=== PATIENT | female | born 1965 | race Caucasian/White ===

== ENCOUNTER 2019-06-11 15:17 | Inpatient (IN) ==
[2019-06-11] MEDS ORDERED: LORazepam 1 MG/2 ML VIAL IV STA (15:36)
[2019-06-11] MEDS ORDERED: LORazepam 2 MG/ML VIAL (IM USE) ONE (15:37)
[2019-06-11 15:43] LABS: Basophils # (auto) 0.01 K/uL (0-0.2); Basophils % (auto) 0.1 %; Hematocrit (blood only) 30.9 % (37-47); Immature Granulocytes # (auto) 0.03 K/uL (0.00-0.02); Immature Granulocytes % (auto) 0.2 %; Lymphocytes # (auto) 0.74 K/uL (1.2-3.4); Lymphocytes % (auto) 5.6 %; Mean Corpuscular Hemoglobin 20.4 pg (25-34); Mean Corpuscular Hgb Conc 29.1 g/dL (32-36); Mean Corpuscular Volume 69.9 fL (80-100); Mean Platelet Volume 9.8 fL (7.4-10.4); Monocytes # (auto) 0.35 K/uL (0.11-0.59); Monocytes % (auto) 2.6 %; Neutrophils % (auto) 91.5 %; Platelet Count 441 K/uL (130-400); RDW Coefficient of Variation 18.4 % (11.5-14.5); RDW Standard Deviation 46.3 fL (36.4-46.3); Red Blood Count 4.42 M/uL (4.2-5.4); White Blood Count 13.33 K/uL (4.8-10.8)
[2019-06-11] MEDS ORDERED: SODIUM CHLORIDE 0.9% 1000ML 1,000 ML IV SCH (15:45)
[2019-06-11 16:01] LABS: Alanine Aminotransferase 31 U/L (12-78); Albumin Level 4.1 gm/dl (3.4-5.0); Aspartate Aminotransferase 21 U/L (15-37); BUN Creatinine Ratio 13.5 (10-20); Blood Urea Nitrogen 16 mg/dl (7-18); Carbon Dioxide 19 mmol/L (21-32); Chloride 107 mmol/L (98-107); Est GFR (African American) 62.7; Est GFR (Non-African American) 54.1; Glucose 161 mg/dl (70-99); Magnesium 1.5 mg/dl (1.8-2.4); Potassium 3.2 mmol/L (3.5-5.1); Sodium 137 mmol/L (136-145)
[2019-06-11] MEDS ORDERED: MAGNESIUM SULFATE / D5W 1 GM/100 ML BAG IV ONE (16:05)
[2019-06-11 16:18] LABS: Alkaline Phosphatase 85 U/L (45-117); Bilirubin,Total 0.5 mg/dl (0.2-1); Globulin 4.3 gm/dl (2.5-4.0); Phosphorus 0.9 mg/dl (2.5-4.9); Total Protein 8.4 gm/dl (6.4-8.2)
[2019-06-11] MEDS ORDERED: POTASSIUM PHOS 3 MMOL/1 ML INFUSION IV STA ×2 (16:20→20:47)
[2019-06-11 16:21] LABS: Hypochromasia Present; Microcytosis Present
[2019-06-11] MEDS ORDERED: POTASSIUM PHOSPHATE 21 MMOL in SODIUM CHLORIDE 0.9% 500 ML IV ONE ×2 (16:45→22:30)
[2019-06-11 17:20] LABS: Influenza A virus by PCR Neg for Influ A (Neg); Influenza B virus by PCR Neg for Influ B (Neg)
[2019-06-11 17:21] LABS: Appearance Urine Clear (Clear); Bilirubin Urine Negative (Negative); Blood Urine Negative (Negative); Color Urine Yellow; Glucose Urine UA Negative (Negative); Ketones Urine Negative (Negative); Leukocyte Esterase Urine Negative (Negative); Nitrite Urine Negative (Negative); Protein Urine Negative (Negative); Specific Gravity Urine 1.015 (1.000-1.030); Urobilinogen Urine Negative (Negative); pH Urine 8.5 (4.5-7.5)
--- NOTE | 2019-06-11 17:53 | History & Physical Report ---
Date of Service June 11, 2019 Assessment & Plan (1) Nausea vomiting and diarrhea: The nausea, vomiting and diarrhea is led to electrolyte disturbances and dehydration, which is caused the rest of her symptoms. I have asked the emergency department to send off stool studies, including rota virus, due to exposure to her daughter who works in a daycare center. Present on Admission?: Yes (2) Hypomagnesemia: Give a total of mag sulfate 3 g IV, and recheck in the a.m. Present on Admission?: Yes (3) Hypokalemia: Place on normal saline plus KCl 20 mEq 150 mils per hour Present on Admission?: Yes (4) Dehydration: Replacing electrolytes and fluids as noted Present on Admission?: Yes (5) Prolonged QT interval: Likely secondary to electrolyte disturbances. Repeat EKG in a.m. once electrolytes have been replaced Present on Admission?: Yes (6) Hypophosphatemia: Replacing with K-Phos IV. Repeat laboratories in a.m. Present on Admission?: Yes (7) Muscle spasm: Secondary to electrolyte disturbances and dehydration. Patient reportedly had muscle contractures secondary to severe spasms when she came into the ED, which gave her concerns regarding a possible stroke. The symptoms improved relatively quickly with rehydration and initial electrolyte replacement Present on Admission?: Yes (8) Anxiety and depression: Continue alprazolam and citalopram Present on Admission?: Yes (9) GERD (gastroesophageal reflux disease): Change omeprazole to pantoprazole Present on Admission?: Yes (10) HTN (hypertension): Hold HCTZ due to ehydration and electrolyte disturbances Present on Admission?: Yes (11) Hyperlipidemia: Continue simvastatin 20 mg at bedtime Present on Admission?: Yes History of Present Illness Chief Complaint: The patient presents to the emergency department with 24 hours of persistent nausea, vomiting and diarrhea, with subsequent arm and leg cramps and tingling that concerned her that she might be having a stroke Primary Care Provider: Laxmi De La Torre DO The patient is a 53-year-old female with a past medical history of hypert ension, GERD, hypercholesterolemia, anxiety and depression who presents to the emergency department 24 hours of persistent nausea, vomiting and diarrhea and arm and leg cramping. She did also have some lightheadedness and dizziness along with fatigue. She has not had any recent travels. Her main potential sick exposure is that of her daughter who works at a daycare center. She does not think she has had any potentially contaminated food intake. Allergies Allergy/AdvReac Type Severity Reaction Status Date / Time Sulfa (Sulfonamide Allergy Rash Unverified 06/11/19 16:52 Antibiotics) Home Medications Home Medications Medication Instructions Recorded Confirmed Type alprazolam 0.25 mg PO UD PRN 06/11/19 06/11/19 History aspirin 81 mg PO QAM 06/11/19 06/11/19 History citalopram 40 mg PO QPM 06/11/19 06/11/19 History hydrochlorothiazide 50 mg PO QAM 06/11/19 06/11/19 History multivitamin 1 tab PO QPM 06/11/19 06/11/19 History omeprazole 20 mg PO QAM 06/11/19 06/11/19 History simvastatin 20 mg PO HS 06/11/19 06/11/19 History Past Med/Surg History Medical History HTN (hypertension) Surgical History H/O right wrist surgery Family History Other No significant family history Social History Preferred Language: Ghanaian Communication Ability: Effective 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 Beliefs That Will Affect Care: None marital status: Current Living Situation: Spouse current occupational status: employed Feels Safe at Home: Yes Safety Concerns: Feels Safe At This Time Smoking Status: Never smoker Hx Alcohol Use: Yes Alcohol type: beer Hx Substance Use: No Review of Systems Review of Systems: The patient denies chest pain, palpitations, cough, lower extremity swelling, sore throat, fevers, chills, sweats, blood in urine or stool, dysuria, urinary frequency or urgency, headache, memory loss, loss of consciousness, rash, abnormal bruising or bleeding, imbalance, focal or generalized weakness, generalized arthralgias or myalgias, back or neck pain, or night sweats. The review of systems is otherwise negative other than for that already noted above, and at least 10 systems have been reviewed. Physical Exam Physical Exam: The patient is awake, alert and oriented 3, well developed and well nourished, normocephalic and atraumatic, sitting upright in bed and in no acute distress. HEENT--PERRL, EOMI, mucous membranes and oropharynx dry. Neck--supple. No JVD. No bruits. Thyroid normal, trachea midline, no a denopathy. Heart--normal S1 and S2. No murmurs, rubs or gallops. Lungs--clear bilaterally, no respiratory distress, no accessory muscle use. Abdomen--normal bowel sounds and soft. Nontender. Nondistended, no hernias or masses, no organomegaly. Extremities--no cyanosis or clubbing. No edema. There are good distal pulses b/l. Dermatologic--normal skin turgor, normal color, no abnormal lymph nodes, no rash. Neurologic--cranial nerves II through XII grossly intact. Rheumatologic--normal range of motion. Psychiatric--normal affect. Results & Data Vital Signs (Past 12 Hours) Vital Signs Temp Pulse Resp BP Pulse Ox 06/11/19 15:37 78 48 H 97 06/11/19 15:17 98.2 F 78 40 H 146/64 H 100 Laboratory Results Laboratory Results WBC 13.33 K/uL (4.8-10.8) H 06/11/19 15:36 RBC 4.42 M/uL (4.2-5.4) 06/11/19 15:36 Hgb 9.0 g/dL (12.0-16.0) L 06/11/19 15:36 Hct 30.9 % (37-47) L 06/11/19 15:36 MCV 69.9 fL (80-100) L 06/11/19 15:36 MCH 20.4 pg (25-34) L 06/11/19 15:36 MCHC 29.1 g/dL (32-36) L 06/11/19 15:36 RDW Std Deviation 46.3 fL (36.4-46.3) 06/11/19 15:36 RDW Coeff of Freddie 18.4 % (11.5-14.5) H 06/11/19 15:36 Plt Count 441 K/uL (130-400) H 06/11/19 15:36 MPV 9.8 fL (7.4-10.4) 06/11/19 15:36 Immature Gran % (Auto) 0.2 % 06/11/19 15:36 Neut % (Auto) 91.5 % 06/11/19 15:36 Lymph % (Auto) 5.6 % 06/11/19 15:36 [place] % (Auto) 2.6 % 06/11/19 15:36 Eos % (Auto) 0.0 % 06/11/19 15:36 Baso % (Auto) 0.1 % 06/11/19 15:36 Immature Gran # (Auto) 0.03 K/uL (0.00-0.02) H 06/11/19 15:36 Neut # (Auto) 12.20 K/uL (1.4-6.5) H 06/11/19 15:36 Lymph # (Auto) 0.74 K/uL (1.2-3.4) L 06/11/19 15:36 [place] # (Auto) 0.35 K/uL (0.11-0.59) 06/11/19 15:36 Eos # (Auto) 0.00 K/uL (0-0.5) 06/11/19 15:36 Baso # (Auto) 0.01 K/uL (0-0.2) 06/11/19 15:36 Hypochromasia Present 06/11/19 15:36 Microcytosis Present 06/11/19 15:36 Sodium 137 mmol/L (136-145) 06/11/19 15:36 Potassium 3.2 mmol/L (3.5-5.1) L 06/11/19 15:36 Chloride 107 mmol/L (98-107) 06/11/19 15:36 Carbon Dioxide 19 mmol/L (21-32) L 06/11/19 15:36 Anion Gap 11.0 (3-11) 06/11/19 15:36 BUN 16 mg/dl (7-18) 06/11/19 15:36 Creatinine 1.16 mg/dl (0.6-1.2) 06/11/19 15:36 Est Cr Clr Drug Dosing Not Reportable 06/11/19 15:36 Est GFR ( Amer) 62.7 06/11/19 15:36 Est GFR (Non-Af Amer) 54.1 06/11/19 15:36 BUN/Creatinine Ratio 13.5 (10-20) 06/11/19 15:36 Glucose 161 mg/dl (70-99) H 06/11/19 15:36 POC Glucose 164 (70-99) H 06/11/19 15:47 Calcium 9.0 mg/dl (8.5-10.1) 06/11/19 15:36 Phosphorus 3.9 mg/dl (2.5-4.9) D 06/11/19 21:06 Magnesium 2.2 mg/dl (1.8-2.4) 06/11/19 21:48 Total Bilirubin 0.5 mg/dl (0.2-1) 06/11/19 15:36 AST 21 U/L (15-37) 06/11/19 15:36 ALT 31 U/L (12-78) 06/11/19 15:36 Alkaline Phosphatase 85 U/L (45-117) 06/11/19 15:36 Total Protein 8.4 gm/dl (6.4-8.2) H 06/11/19 15:36 Albumin 4.1 gm/dl (3.4-5.0) 06/11/19 15:36 Globulin 4.3 gm/dl (2.5-4.0) H 06/11/19 15:36 Albumin/Globulin Ratio 1.0 (0.9-2) 06/11/19 15:36 TSH 4.770 uIu/ml (0.300-4.500) H 06/11/19 15:36 Free T4 1.30 ng/dl (0.8-1.6) 06/11/19 15:36 Urine Color Yellow 06/11/19 17:13 Urine Appearance Clear (Clear) 06/11/19 17:13 Urine pH 8.5 (4.5-7.5) H 06/11/19 17:13 Ur Specific [place] 1.015 (1.000-1.030) 06/11/19 17:13 Urine Protein Negative (Negative) 06/11/19 17:13 Urine Glucose (UA) Negative (Negative) 06/11/19 17:13 Urine Ketones Negative (Negative) 06/11/19 17:13 Urine Blood Negative (Negative) 06/11/19 17:13 Urine Nitrite Negative (Negative) 06/11/19 17:13 Urine Bilirubin Negative (Negative) 06/11/19 17:13 Urine Urobilinogen Negative (Negative) 06/11/19 17:13 Ur Leukocyte Esterase Negative (Negative) 06/11/19 17:13 Influenza Type A (PCR) Neg for Influ A (Neg) 06/11/19 16:00 Influenza Type B (PCR) Neg for Influ B (Neg) 06/11/19 16:00 Code Status & VTE Plan Code Status Full code VTE Prophylaxis Plan VTE Prophylaxis will be ordered: Yes PG Care Time/CCT Total # of Minutes Spent Total Time Spent with Patient: Total time spent is greater than 50% in coordination of care (as documented) at patient's floor/unit and/or counseling patient:
--- NOTE | 2019-06-11 18:02 | Emergency Department Note ---
Entered by Guerita Arroyo acting as a scribe for History of Present Illness General Chief complaint: TIA Symptoms Stated complaint: NUMB FINGERS/FEET Time Seen by Provider: 06/11/19 15:24 Source: patient History of Present Illness Onset (ago): hour(s) 2 Location: head Pain Consistency: + other (episode) Maximum Pain Intensity: 10 Quality: + other (TIA symptoms) Associated symptoms: + denies other symptoms (change in diet, recent falls), + fever/chills (fever), + nausea/vomiting and + other (cramps, breathing heavy, abdominal pain, tingling in face, foot pain, inability to sit still, body aches, diarrhea) The patient is a 53 year old female w/ PMHx HTN and right wrist surgery who presents to the ED w/ CC of an episode of TIA symptoms starting 2 hours ago. The patient states that this morning she started vomiting and it was black. She states that by 2 hours ago she had a fever of 102 and her hands started to cramp. She reports that she took Ibuprofen at this time. She notes that at that time she wasnt breathing heavy, but her was able to talk her into coming into the ED because he was concerned she was having a stroke. The patient states that on the way here she started having tingling in her face, foot pain, worsening cramps in her hands, and being unable to sit still. The patient complains of abdominal pain from vomiting, body aches, and diarrhea. The patient notes that she did get the flu shot. The patient denies change in diet, change in medications, anyone else being sick, recent travel, recent antibiotic use, recent falls, and a history of diabetes. Home Medications Home Medications Medication Instructions Recorded Confirmed Type alprazolam 0.25 mg PO UD PRN 06/11/19 06/11/19 History aspirin 81 mg PO QAM 06/11/19 06/11/19 History citalopram 40 mg PO QPM 06/11/19 06/11/19 History hydrochlorothiazide 50 mg PO QAM 06/11/19 06/11/19 History multivitamin 1 tab PO QPM 06/11/19 06/11/19 History omeprazole 20 mg PO QAM 06/11/19 06/11/19 History simvastatin 20 mg PO HS 06/11/19 06/11/19 History Allergies Allergy/AdvReac Type Severity Reaction Status Date / Time Sulfa (Sulfonamide Allergy Rash Unverified 06/11/19 16:52 Antibiotics) Past Med/Surg History Medical History HTN (hypertension) Surgical History H/O right wrist surgery Family History Other No significant family history Social History Preferred Language: Malian marital status: Current Living Situation: Spouse current occupational status: employed Feels Safe at Home: Yes Smoking Status: Former smoker Review of Systems See HPI for pertinent positives & negatives. and A total of 10 systems reviewed and were otherwise negative Physical Exam Vital Signs Vital Signs - 24 hr 06/11/19 15:17 06/11/19 15:37 Temperature 36.8 C Temperature Source Oral Pulse Rate 78 78 Pulse Rhythm Regular Pulse Strength Normal Respiratory Rate 40 H 48 H Respiratory Effort / Characteristics Non-Labored Respiratory Depth Normal Respiratory Pattern Regular Blood Pressure 146/64 H Blood Pressure Mean 91 Blood Pressure Position Sitting Pulse Oximetry 100 97 Oxygen Delivery Method Room Air Room Air Sepsis Recent Fever Within 48 Hours No Sepsis Action Taken by Nursing No Action Required GENERAL: Well nourished, moderate distress. Anxious. EYE EXAM: Normal conjunctiva. PERRL, no anisocoria and EOM's grossly intact w/o pain. OROPHARYNX: Moist mucous membranes. Grossly normal dentition. NECK: Supple, no nuchal rigidity, no adenopathy, non-tender. No signs of meningismus. LUNGS: Clear to auscultation. Normal chest wall mechanics. HEART: NSR, no MRG. ABDOMEN: Abdomen soft, non-tender, normo-active bowel sounds, no masses, no rebound or guarding. BACK: No CVA TTP. SKIN: No rashes and no bruising. UPPER EXTREMITIES: Upper extremities are grossly normal. LOWER EXTREMITIES: No pitting edema. No calf pain. NEURO EXAM: A&O x3, cranial nerves II-XII grossly intact, normal speech, moves all 4 extremities on command w/o issue with the exception of the left upper extremity secondary to contracture. Course Course 1531:The patient was evaluated in room B3B. A complete history and physical exam was performed. 1534: Orders were placed and the patient was started on a monitoring tech. 1640: I reevaluated the patient and updated her on her test results. I discussed the treatment plan with her. She verbally agrees and understands. 1652: I discussed the patient's case with Dr. Barney- [facility] Hospitalist. She will evaluate the patient for further management. Administered Medications Potassium Phosphate 21 mmol/ (Sodium Chloride) 507 mls @ 88 mls/hr IV ONE ONE Stop: 06/11/19 22:30 Last Admin: 06/11/19 16:45 Dose: 88 mls/hr Documented by: [id number] Discontinued Medications Sodium Chloride (Nss 1000ml) 1,000 mls @ 999 mls/hr IV .Q1H1M NAHOMY Stop: 06/11/19 16:45 Last Admin: 06/11/19 15:42 Dose: 999 mls/hr Documented by: [id number] Lorazepam (Ativan) 1 mg in 2 mls @ 2 mls/min IV NOW STA Stop: 06/11/19 15:37 Last Admin: 06/11/19 15:41 Dose: Not Given Documented by: [id number] Magnesium Sulfate/Dextrose (Magnesium Sulfate / D5w) 1 gm in 100 mls @ 100 mls/hr IV ONE ONE Stop: 06/11/19 17:04 Last Admin: 06/11/19 16:47 Dose: 100 mls/hr Documented by: [id number] Lorazepam (Ativan) Confirm Administered Dose 2 mg .ROUTE .STK-MED ONE Stop: 06/11/19 15:38 Last Admin: 06/11/19 15:41 Dose: 1 mg Documented by: [id number] Critical Care Time Critical Care Time: Yes Total Critical Care Time: 35 I have personally spent 35 minutes of critical care time in direct management of this patient. This includes bedside care, interpretation of diagnostic studies, and testing, discussion with consultants, patient, and family members, and other require inpatient management activities. This 35 minutes is in excess of all separately billable procedures. Medical Decision Making Differential Diagnosis Differential diagnoses include dehydration, electrolyte imbalance, hyperg lycemia, stroke, anxiety, viral syndrome. Medical Records Attestation: I reviewed the patient's medical records. Home Medications Current Medication List: was personally reviewed by me Laboratory Data Attestation: I reviewed the patient's lab results. Result diagrams: 06/11/19 15:36 06/11/19 15:36 Lab Results 06/11/19 06/11/19 06/11/19 Range/Units 15:36 15:36 15:47 WBC 13.33 H (4.8-10.8) K/uL RBC 4.42 (4.2-5.4) M/uL Hgb 9.0 L (12.0-16.0) g/dL Hct 30.9 L (37-47) % MCV 69.9 L (80-100) fL MCH 20.4 L (25-34) pg MCHC 29.1 L (32-36) g/dL RDW Std Deviation 46.3 (36.4-46.3) fL RDW Coeff of Freddie 18.4 H (11.5-14.5) % Plt Count 441 H (130-400) K/uL MPV 9.8 (7.4-10.4) fL Immature Gran % (Auto) 0.2 % Neut % (Auto) 91.5 % Lymph % (Auto) 5.6 % Rich % (Auto) 2.6 % Eos % (Auto) 0.0 % Baso % (Auto) 0.1 % Immature Gran # (Auto) 0.03 H (0.00-0.02) K/uL Neut # (Auto) 12.20 H (1.4-6.5) K/uL Lymph # (Auto) 0.74 L (1.2-3.4) K/uL Rich # (Auto) 0.35 (0.11-0.59) K/uL Eos # (Auto) 0.00 (0-0.5) K/uL Baso # (Auto) 0.01 (0-0.2) K/uL Hypochromasia Present Microcytosis Present Sodium 137 (136-145) mmol/L Potassium 3.2 L (3.5-5.1) mmol/L Chloride 107 (98-107) mmol/L Carbon Dioxide 19 L (21-32) mmol/L Anion Gap 11.0 (3-11) BUN 16 (7-18) mg/dl Creatinine 1.16 (0.6-1.2) mg/dl Est Cr Clr Drug Dosing Not Reportable Est GFR ( Amer) 62.7 Est GFR (Non-Af Amer) 54.1 BUN/Creatinine Ratio 13.5 (10-20) Glucose 161 H (70-99) mg/dl POC Glucose 164 H (70-99) Calcium 9.0 (8.5-10.1) mg/dl Phosphorus 0.9 L* (2.5-4.9) mg/dl Magnesium 1.5 L (1.8-2.4) mg/dl Total Bilirubin 0.5 (0.2-1) mg/dl AST 21 (15-37) U/L ALT 31 (12-78) U/L Alkaline Phosphatase 85 (45-117) U/L Total Protein 8.4 H (6.4-8.2) gm/dl Albumin 4.1 (3.4-5.0) gm/dl Globulin 4.3 H (2.5-4.0) gm/dl Albumin/Globulin Ratio 1.0 (0.9-2) TSH 4.770 H (0.300-4.500) uIu/ml Free T4 1.30 (0.8-1.6) ng/dl Urine Color Urine Appearance (Clear) Urine pH (4.5-7.5) Ur Specific [place] (1.000-1.030) Urine Protein (Negative) Urine Glucose (UA) (Negative) Urine Ketones (Negative) Urine Blood (Negative) Urine Nitrite (Negative) Urine Bilirubin (Negative) Urine Urobilinogen (Negative) Ur Leukocyte Esterase (Negative) Influenza Type A (PCR) (Neg) Influenza Type B (PCR) (Neg) 06/11/19 06/11/19 Range/Units 16:00 17:13 WBC (4.8-10.8) K/uL RBC (4.2-5.4) M/uL Hgb (12.0-16.0) g/dL Hct (37-47) % MCV (80-100) fL MCH (25-34) pg MCHC (32-36) g/dL RDW Std Deviation (36.4-46.3) fL RDW Coeff of [place] (11.5-14.5) % Plt Count (130-400) K/uL MPV (7.4-10.4) fL Immature Gran % (Auto) % Neut % (Auto) % Lymph % (Auto) % [place] % (Auto) % Eos % (Auto) % Baso % (Auto) % Immature Gran # (Auto) (0.00-0.02) K/uL Neut # (Auto) (1.4-6.5) K/uL Lymph # (Auto) (1.2-3.4) K/uL [place] # (Auto) (0.11-0.59) K/uL Eos # (Auto) (0-0.5) K/uL Baso # (Auto) (0-0.2) K/uL Hypochromasia Microcytosis Sodium (136-145) mmol/L Potassium (3.5-5.1) mmol/L Chloride (98-107) mmol/L Carbon Dioxide (21-32) mmol/L Anion Gap (3-11) BUN (7-18) mg/dl Creatinine (0.6-1.2) mg/dl Est Cr Clr Drug Dosing Est GFR ( Amer) Est GFR (Non-Af Amer) BUN/Creatinine Ratio (10-20) Glucose (70-99) mg/dl POC Glucose (70-99) Calcium (8.5-10.1) mg/dl Phosphorus (2.5-4.9) mg/dl Magnesium (1.8-2.4) mg/dl Total Bilirubin (0.2-1) mg/dl AST (15-37) U/L ALT (12-78) U/L Alkaline Phosphatase (45-117) U/L Total Protein (6.4-8.2) gm/dl Albumin (3.4-5.0) gm/dl Globulin (2.5-4.0) gm/dl Albumin/Globulin Ratio (0.9-2) TSH (0.300-4.500) uIu/ml Free T4 (0.8-1.6) ng/dl Urine Color Yellow Urine Appearance Clear (Clear) Urine pH 8.5 H (4.5-7.5) Ur Specific [place] 1.015 (1.000-1.030) Urine Protein Negative (Negative) Urine Glucose (UA) Negative (Negative) Urine Ketones Negative (Negative) Urine Blood Negative (Negative) Urine Nitrite Negative (Negative) Urine Bilirubin Negative (Negative) Urine Urobilinogen Negative (Negative) Ur Leukocyte Esterase Negative (Negative) Influenza Type A (PCR) Neg for Influ A (Neg) Influenza Type B (PCR) Neg for Influ B (Neg) ECG Data Attestation: I personally reviewed and interpreted this ECG as follows: Indication: + vomiting Rate (beats per minute): 71 Rhythm: + normal sinus ECG Intervals/blocks: + Normal QRS, + Prolonged QT and + Normal SC ECG ST segments: + ST depression (anterior and lateral) Blood Pressure Blood Pressure Findings: Elevated blood pressure Blood Pressure Disposition: further management by hospitalist MDM Narrative The patient is a 53 year old female w/ PMHx HTN and right wrist surgery who presents to the ED w/ CC of an episode of TIA symptoms starting 2 hours ago. Patient was seen and evaluated the bedside. The patient does present with difficulty with movement. The patient also does complain of some paresthesias throughout. The patient is hyperventilating at the bedside and on exam the patient does appear to have some contracture which may be related to spasm. The patient has related that she has been having some diarrheal type symptoms and has not been able to keep up with her fluids. The patient did have blood work completed on I did not order a CT of the head initially as I was more concerned of the possibility of metabolic abnormality. No prior history of hyperglycemia. I did discuss that we would order CT of the head if this was not explained by metabolic issues. The patient has a mild white count of 13 which I believe is reactive. Patient does have anemia. The patient's blood work does show a decreased bicarb may be consistent as a surrogate of dehydration and lactic acidosis. The patient does have critically low phosphorus as well as low magnesium and potassium. Potassium phosphate was ordered as well as magnesium for repletion. TSH is elevated but free T4 is normal. Urinalysis is negative as well as the flu. Given the fact the patient has prolonged QT and given the prolonged time course of repletion and continued management I believe she would benefit from inpatient treatment. I did speak with on-call hospitalist agreed to further evaluate treat the patient. Patient was subsequently admitted to the medicine service. Impression & Plan Hypophosphatemia, Muscle spasm, Prolonged QT interval, Hypokalemia, Hypomagnesemia, Dehydration Discharge Plan Visit Data Chief Complaint: TIA Symptoms Stated Complaint: NUMB FINGERS/FEET ED Provider: Arsenio Pena Discharge Problem: Hypophosphatemia, Muscle spasm, Prolonged QT interval, Hypokalemia, Hypomagnesemia, Dehydration Patient Disposition: Being Evaluated by Hospitalist Forms Stand Alone Forms: My [facility] Prescriptions Prescriptions: No Action multivitamin Tablet 1 tab PO QPM RF: 0 citalopram 40 mg tablet 40 mg PO QPM RF: 0 hydrochlorothiazide 50 mg tablet 50 mg PO QAM RF: 0 aspirin 81 mg Tablet,Delayed Release (Dr/Ec) 81 mg PO QAM RF: 0 alprazolam 0.25 mg tablet 0.25 mg PO UD PRN (Reason: Anxiety) RF: 0 simvastatin 20 mg tablet 20 mg PO HS RF: 0 omeprazole 20 mg capsule,delayed release(DR/EC) 20 mg PO QAM RF: 0 Referrals Referrals: Laxmi De La Torre DO [Primary Care Provider] - The scribe's documentation has been prepared under my direction and personally reviewed by me in its entirety. I confirm that the note above accurately reflects all work, treatment, procedures, and medical decision making performed by me.
[2019-06-11] MEDS ORDERED: ONDANSETRON INJ 2 MG/ML 2 ML VIAL IV PRN (20:47)
[2019-06-11] MEDS ORDERED: ACETAMINOPHEN 325 MG TAB PO PRN (20:47)
[2019-06-11 21:31] LABS: Phosphorus 3.9 mg/dl (2.5-4.9)
[2019-06-11] MEDS: CITALOPRAM 40 MG TAB PO SCH (21:33)
[2019-06-11] MEDS: NSS + 20MEQ KCL 20 MEQ/1,000 ML BAG IV SCH (21:34)
[2019-06-11] MEDS: MULTIVITAMIN TAB PO SCH (21:34)
[2019-06-11] MEDS: SIMVASTATIN 20 MG TAB PO SCH (21:34)
[2019-06-11] MEDS: MAGNESIUM SULFATE / D5W 1 GM/100 ML BAG IV SCH ×2 (21:35→22:36)
[2019-06-12] MEDS: NSS + 20MEQ KCL 20 MEQ/1,000 ML BAG IV SCH ×4 (03:35→23:39)
[2019-06-12 05:57] LABS: Basophils # (auto) 0.01 K/uL (0-0.2); Basophils % (auto) 0.2 %; Eosinophils # (auto) 0.03 K/uL (0-0.5); Eosinophils % (auto) 0.5 %; Hematocrit (blood only) 24.3 % (37-47); Hemoglobin 7.1 g/dL (12.0-16.0); Lymphocytes # (auto) 0.84 K/uL (1.2-3.4); Mean Corpuscular Hemoglobin 20.6 pg (25-34); Mean Corpuscular Hgb Conc 29.2 g/dL (32-36); Mean Corpuscular Volume 70.6 fL (80-100); Mean Platelet Volume 9.5 fL (7.4-10.4); Monocytes # (auto) 0.51 K/uL (0.11-0.59); Monocytes % (auto) 8.5 %; Neutrophils % (auto) 76.8 %; Platelet Count 308 K/uL (130-400); RDW Standard Deviation 49.2 fL (36.4-46.3); Red Blood Count 3.44 M/uL (4.2-5.4); White Blood Count 5.99 K/uL (4.8-10.8)
--- NOTE | 2019-06-12 06:05 | Electrocardiogram Report ---
Test Reason : Blood Pressure : / mmHG Vent. Rate : 071 BPM Atrial Rate : 071 BPM P-R Int : 126 ms QRS Dur : 086 ms QT Int : 490 ms P-R-T Axes : 034 014 -01 degrees QTc Int : 532 ms Poor data quality, interpretation may be adversely affected Normal sinus rhythm Nonspecific ST abnormality Prolonged QT Abnormal ECG No previous ECGs available Confirmed by Mahin Ramos ([id number]) on 06/12/2019 6:05:34 AM Referred By: Confirmed By:Mahin Ramos
[2019-06-12 06:23] LABS: Hypochromasia Present; Microcytosis Present
[2019-06-12 06:43] LABS: Albumin Globulin Ratio 0.9 (0.9-2); Albumin Level 2.9 gm/dl (3.4-5.0); BUN Creatinine Ratio 11.8 (10-20); Bilirubin,Total 0.3 mg/dl (0.2-1); Calcium 7.7 mg/dl (8.5-10.1); Creatinine Clr Calc Pharmacy 105.6 ml/min; Est GFR (African American) 122.1; Est GFR (Non-African American) 105.4; Globulin 3.3 gm/dl (2.5-4.0); Phosphorus 2.9 mg/dl (2.5-4.9); Potassium 3.2 mmol/L (3.5-5.1); Total Protein 6.2 gm/dl (6.4-8.2)
[2019-06-12] MEDS ORDERED: POTASSIUM CHLORIDE 10 MEQ TABCR PO STA (07:31)
[2019-06-12] MEDS ORDERED: CALCIUM GLUCONATE 10% 2,000 MG in SODIUM CHLORIDE 0.9% 50 ML IV SCH (08:00)
[2019-06-12] MEDS ORDERED: ASPIRIN 81 MG ECTAB PO SCH (09:00)
[2019-06-12] MEDS ORDERED: PANTOprazole 40 MG TAB PO SCH (09:00)
[2019-06-12] MEDS: PANTOprazole 40 MG in SYRINGE 0 ML IV SCH ×2 (09:26→20:21)
--- NOTE | 2019-06-12 10:39 | Consultation Report ---
DATE OF CONSULTATION: 06/12/2019 REASON FOR EVALUATION: A 53-year-old female who presented to the hospital last night with 24 hours of nausea, vomiting and diarrhea. She vomited 5 times at home and she did not look at her vomitus, but her said it was dark and looked like blood. A week ago, she had 1 stool that she recalls as being sort of black and tarry as well. She reports no abdominal pain. She does take a baby aspirin every day and has done so for several years after being diagnosed with Lyme disease several years ago. She has also been on omeprazole 20 mg a day for heartburn. She says that she has been followed in the past for GI symptoms at [facility] in [place], but recently moved to the [facility]. She said she has a hiatal hernia that has been diagnosed in the past. Her last colonoscopy was 5 years ago and was negative. She has been dehydrated and her electrolytes were abnormal and she was hospitalized for further evaluation. On admission, her hemoglobin was 9, but dropped to 7.1 overnight and she is getting transfused today. Her MCV is also very low at 70. TSH was slightly elevated as well, but her free T4 was normal. PAST MEDICAL HISTORY: Remarkable for anxiety and depression, hypertension, elevated lipids. She has had surgery on her right wrist. MEDICATIONS: Alprazolam, aspirin, citalopram, hydrochlorothiazide, multiple vitamin, omeprazole and simvastatin. ALLERGIES: SULFA CAUSED A RASH. FAMILY HISTORY: Positive for hypertension. SOCIAL HISTORY: The patient is . She works outside the home, does not smoke. Drinks beer occasionally. REVIEW OF SYSTEMS: Positive for heartburn. Remainder is negative. PHYSICAL EXAMINATION: GENERAL: The patient is overweight, in no acute distress. VITAL SIGNS: Normal. She is afebrile. ABDOMEN: Shows a low transverse hysterectomy scar. She has had an umbilical scar from a tubal ligation and laparoscopic cholecystectomy scar. There are no masses, tenderness or hepatosplenomegaly. LUNGS: Clear. HEART: Showed a normal S1 and S2. Regular rate and rhythm without murmurs, rubs or gallops. NEUROLOGIC: Grossly normal. IMPRESSION AND PLAN: The patient presents with what sounds like hematemesis with a significant anemia with microcytic indices. It is very likely she has an ulcer from her aspirin and plan on maintaining her on Protonix and stopping the aspirin as already in place. We will schedule her for an EGD tomorrow. We will check iron studies. We will check H. pylori stool test, stool for Hemoccult, CEA and tissue transglutaminase. Further recommendations will be based on results of her EGD and lab results.
--- NOTE | 2019-06-12 12:39 | Hospitalist Progress Note ---
Date of Service June 12, 2019 Assessment & Plan (1) Upper GI bleed: Her history is pretty classic for an upper GI bleed. Five episodes of black emesis along with dark, tarry stools yesterday. Interestingly, no abdominal pain despite all this. Follows with [facility] in [place]. EGD 2-3 years ago showed nothing acute per patient. - PPI IV Q12h - GI consult - Discussed with Dr. Franklin; probably EGD tomorrow. - Close monitoring of hgb - Blood consent in. Will T&S with next blood draw. (2) Electrolyte abnormality: The nausea, vomiting and diarrhea is led to electrolyte disturbances and dehydration. Cdiff negative on 06/11. - Replete as needed - Stool culture pending (3) Anxiety and depression: Patient understandably nervous about her prognosis. Reassured her as much as able. - Continue alprazolam and citalopram (4) HTN (hypertension): BP stable at 110/60. - Hold HCTZ due to GI bleed, dehydration, and electrolyte disturbances as above (5) GERD (gastroesophageal reflux disease): - PPI IV as above (6) Hyperlipidemia: - Continue simvastatin 20 mg at bedtime (7) DVT prophylaxis: SCDs - Low DVT risk per admission calculator & no heparin given concern for GI bleed Subjective No further emesis today. Some nausea, but minimal. Some diarrhea, but it is improving. Reports no fevers/chills, chest pain, shortness of breath, or abdominal pain. Physical Exam Constitutional: WD/WN, vitals as above + ill appearing (Pale) and average body habitus Eyes: EOM intact bilaterally; no conjunctival abnormality ENMT: external ear and nose normal, oropharynx normal Neck: trachea midline, no thyromegaly normal visual inspection Respiratory: normal respiratory effort, lungs clear to auscultation no respiratory distress Cardiovascular: RRR, no murmur, no edema Gastrointestinal (Abdomen): Inspection/Auscultation: abdomen normal to inspection; abdomen not distended Musculoskeletal: no cyanosis or clubbing, extremities motor strength 5/5 Skin: no rashes, warm and dry Neurologic: moves all extremities and awake Psychiatric: Orientation: alert, oriented to person and cooperative Results & Data Vital Signs (Past 12 Hours) Vital Signs Temp Pulse Pulse Pulse Resp BP Pulse Ox 06/12/19 11:39 37.0 C 60 16 111/57 L 99 06/12/19 08:20 37.2 C 57 L 16 102/57 L 98 06/12/19 08:00 60 06/12/19 03:52 36.9 C 91 H 18 110/63 95 PG Care Time/CCT Total # of Minutes Spent Total Time Spent with Patient: Total time spent is greater than 50% in coordination of care (as documented) at patient's floor/unit and/or counseling patient:
[2019-06-12 14:46] LABS: BUN Creatinine Ratio 7.2 (10-20); Creatinine Clr Calc Pharmacy 91.7 ml/min; Est GFR (African American) 116.6; Est GFR (Non-African American) 100.6; Magnesium 1.9 mg/dl (1.8-2.4); Phosphorus 1.5 mg/dl (2.5-4.9); Potassium 3.9 mmol/L (3.5-5.1)
[2019-06-12] MEDS ORDERED: POTASSIUM PHOS 3 MMOL/1 ML INFUSION IV STA (15:36)
[2019-06-12] MEDS ORDERED: POTASSIUM PHOSPHATE 21 MMOL in SODIUM CHLORIDE 0.9% 500 ML IV ONE (16:00)
[2019-06-12] MEDS: IRON SUCROSE 100 MG in 0.9 % SODIUM CHLORIDE 100 ML IV SCH (16:08)
[2019-06-12] MEDS: MULTIVITAMIN TAB PO SCH (20:21)
[2019-06-12] MEDS: SIMVASTATIN 20 MG TAB PO SCH (20:21)
[2019-06-12] MEDS: CITALOPRAM 40 MG TAB PO SCH (20:21)
--- NOTE | 2019-06-12 21:58 | Electrocardiogram Report ---
Test Reason : Blood Pressure : / mmHG Vent. Rate : 063 BPM Atrial Rate : 063 BPM P-R Int : 140 ms QRS Dur : 094 ms QT Int : 480 ms P-R-T Axes : 037 032 -75 degrees QTc Int : 491 ms Normal sinus rhythm Nonspecific ST and T wave abnormality Prolonged QT Abnormal ECG When compared with ECG of 11-JUN-2019 15:29, No significant change Confirmed by Mahin Ramos ([id number]) on 06/12/2019 9:57:52 PM Referred By: REFERRED SELF Confirmed By:Mahin Ramos
[2019-06-12] MEDS: ALPRAZolam 0.25 MG TABLET PO PRN (22:11)
[2019-06-13] MEDS ORDERED: SODIUM CHLORIDE 0.9% 250 ML IV PRN ×2 (01:04→03:07)
[2019-06-13] MEDS: PANTOprazole 40 MG in SYRINGE 0 ML IV SCH ×2 (08:09→20:07)
[2019-06-13] MEDS: NSS + 20MEQ KCL 20 MEQ/1,000 ML BAG IV SCH ×2 (08:16→21:00)
[2019-06-13 09:33] LABS: Hematocrit (blood only) 30.1 % (37-47); Hemoglobin 8.9 g/dL (12.0-16.0); Mean Corpuscular Hgb Conc 29.6 g/dL (32-36); Mean Corpuscular Volume 74.5 fL (80-100); Mean Platelet Volume 9.7 fL (7.4-10.4); Platelet Count 299 K/uL (130-400); RDW Coefficient of Variation 19.9 % (11.5-14.5); Red Blood Count 4.04 M/uL (4.2-5.4); White Blood Count 5.04 K/uL (4.8-10.8)
[2019-06-13 10:00] LABS: BUN Creatinine Ratio 7.3 (10-20); Creatinine Clr Calc Pharmacy 96.8 ml/min; Est GFR (African American) 118.9; Est GFR (Non-African American) 102.6; Magnesium 1.9 mg/dl (1.8-2.4)
[2019-06-13 10:02] LABS: INR 1.1 (0.9-1.1); Partial Thromboplastin Ratio 0.8; Partial Thromboplastin Time 22.2 Seconds (21.0-31.0); Phosphorus 2.5 mg/dl (2.5-4.9); Prothrombin Time 10.9 Seconds (9.0-12.0)
--- NOTE | 2019-06-13 10:04 | Electrocardiogram Report ---
Test Reason : Blood Pressure : / mmHG Vent. Rate : 051 BPM Atrial Rate : 051 BPM P-R Int : 140 ms QRS Dur : 090 ms QT Int : 486 ms P-R-T Axes : 046 044 012 degrees QTc Int : 447 ms Sinus bradycardia Diffuse Nonspecific ST abnormality Abnormal ECG When compared with ECG of 12-JUN-2019 07:23, Nonspecific T wave abnormality, improved in Inferior leads Nonspecific T wave abnormality no longer evident in Anterolateral leads QT has shortened Confirmed by Haja Garcia ([id number]) on 06/13/2019 10:03:48 AM Referred By: REFERRED SELF Confirmed By:Haja Garcia
--- NOTE | 2019-06-13 11:16 | Hospitalist Progress Note ---
Date of Service June 13, 2019 Assessment & Plan (1) Acute blood loss anemia: Unknown previous baseline hgb but was 9.0 on admission and dropped to 6.9 after admission With melena and hematemesis prior to admission On ASA and daily ibuprofen 600mg MCV severely microcytic at 69, plts high, serum Fe low all consistent with Fe- deficiency anemia chronically -transfused 1 unit PRBCs on 06/13 and had good response, hgb up to 8.9 (inappropriately high and drawn shortly after transfusion complete -was given 2 doses of IV Venofer Had colonoscopy 4-5 years ago that was normal-early screening for +FH colon polyps in her mother EGD 06/13 with erosive gastritis and erosive esophagitis, H. pylori bx taken and pending GI does not think these would cause such significant blood loss--> recommends colonoscopy as outpt -follow CBC in AM and if remains stable, tolerating po, can be discharged to home -dc ASA, all NSAIDs -convert IV PPI to Protonix 40mg po bid (2) Upper GI bleed: Her history is pretty classic for an upper GI bleed. Five episodes of black emesis along with dark, tarry stools prior to admission. Interestingly, no abdominal pain despite all this. Follows with [facility] in [place]. EGD 2-3 years ago showed nothing acute per patient and now with erosive gastritis and esophagitis as above. -see above (3) Erosive esophagitis: convert to po PPI -avoid NSAIDs, ASA (4) Erosive gastritis: as above (5) Electrolyte abnormality: The nausea, vomiting and diarrhea is led to electrolyte disturbances and dehydration. Cdiff negative on 06/11. had significant hypomagnesemia, hypokalemia, and hypophosphatemia-now resolved with replacement - Replete as needed - Stool culture negative (6) HTN (hypertension): BP stable - continue to hold HCTZ from home (7) GERD (gastroesophageal reflux disease): - PPI as above (8) Hiatal hernia: 6 cm, seen on EGD, with erosive gastritis -continue PPI as above -avoid NSAIDs, ASA (9) Hyperlipidemia: - Continue simvastatin 20 mg at bedtime (10) Anxiety and depression: Stable - Continue alprazolam and citalopram (11) DVT prophylaxis: SCDs - Low DVT risk per admission calculator & no heparin given concern for GI bleed Dispo-remain overnight and if no further bleeding, radha po, and hgb stable, can dc to home Subjective Pt seen this AM prior to her EGD. She reports doing well, no chest pains. Did have some heartburn yesterday but now gone. Was also having spasm-like pains under her ribs bilat for 1-2 weeks prior to admission, worsening just before admission--> now completely resolved. Denies SOB, no headache, not lightheaded. No further melena, no vomiting. She had a clear BM yesterday. Tele with sinus toan, rates into the 40-50s at times Pt reports she is normally very active and on her feet walking all day long at work. Review of Systems Review of Systems: All systems reviewed & are unremarkable except as noted in HPI & below Physical Exam Constitutional: WD/WN, vitals as above Eyes: PERRL, conjunctivae normal, anicteric sclerae ENMT: external ear and nose normal, oropharynx normal Neck: trachea midline, no thyromegaly Respiratory: normal respiratory effort, lungs clear to auscultation Cardiovascular: Rate/Rhythm: regular rhythm and + bradycardic Heart Sounds: no murmur Extremities: no edema Chest (Breasts): Chest: normal inspection of chest Gastrointestinal (Abdomen): normal bowel sounds, soft, nontender, no hepatosplenomegaly Musculoskeletal: Extremities: extremities normal to inspection; no cyanosis and no clubbing Skin: no rashes, warm and dry Neurologic: moves all extremities and awake; no focal motor deficits Psychiatric: A+Ox3, euthymic affect Lymphatic: no lymphedema Results & Data Vital Signs (Past 12 Hours) Vital Signs Temp Pulse Pulse Resp BP BP Pulse Ox 06/13/19 08:10 36.8 C 52 L 18 117/66 99 06/13/19 07:15 36.6 C 50 L 18 131/75 98 06/13/19 06:15 36.9 C 53 L 16 117/66 99 06/13/19 05:45 36.9 C 55 L 16 118/70 95 06/13/19 05:30 37.0 C 52 L 18 120/67 97 06/13/19 05:15 36.8 C 60 18 123/67 98 06/13/19 03:50 37.2 C 63 18 115/65 97 06/13/19 00:08 58 L Laboratory Results 06/13/19 06/13/19 06/13/19 Range/Units 09:19 09:19 09:19 WBC 5.04 (4.8-10.8) K/uL RBC 4.04 L (4.2-5.4) M/uL Hgb 8.9 L (12.0-16.0) g/dL Hct 30.1 L (37-47) % MCV 74.5 L D (80-100) fL MCH 22.0 L (25-34) pg MCHC 29.6 L (32-36) g/dL RDW Std Deviation 55.0 H (36.4-46.3) fL RDW Coeff of Freddie 19.9 H (11.5-14.5) % Plt Count 299 (130-400) K/uL MPV 9.7 (7.4-10.4) fL PT 10.9 (9.0-12.0) Seconds INR 1.1 (0.9-1.1) APTT 22.2 (21.0-31.0) Seconds PTT Ratio 0.8 Sodium 143 (136-145) mmol/L Potassium 4.0 (3.5-5.1) mmol/L Chloride 113 H (98-107) mmol/L Carbon Dioxide 24 (21-32) mmol/L Anion Gap 5.0 (3-11) BUN 5 L (7-18) mg/dl Creatinine 0.64 (0.6-1.2) mg/dl Est Cr Clr Drug Dosing 96.8 ml/min Est GFR ( Amer) 118.9 Est GFR (Non-Af Amer) 102.6 BUN/Creatinine Ratio 7.3 L (10-20) Glucose 94 (70-99) mg/dl Calcium 9.0 (8.5-10.1) mg/dl Phosphorus 2.5 D (2.5-4.9) mg/dl Magnesium 1.9 (1.8-2.4) mg/dl Blood Type Blood Type Recheck Antibody Screen Crossmatch 06/12/19 06/12/19 06/12/19 Range/Units 23:13 23:13 13:50 WBC (4.8-10.8) K/uL RBC (4.2-5.4) M/uL Hgb 6.9 L* (12.0-16.0) g/dL Hct (37-47) % MCV (80-100) fL MCH (25-34) pg MCHC (32-36) g/dL RDW Std Deviation (36.4-46.3) fL RDW Coeff of Freddie (11.5-14.5) % Plt Count (130-400) K/uL MPV (7.4-10.4) fL PT (9.0-12.0) Seconds INR (0.9-1.1) APTT (21.0-31.0) Seconds PTT Ratio Sodium (136-145) mmol/L Potassium (3.5-5.1) mmol/L Chloride (98-107) mmol/L Carbon Dioxide (21-32) mmol/L Anion Gap (3-11) BUN (7-18) mg/dl Creatinine (0.6-1.2) mg/dl Est Cr Clr Drug Dosing ml/min Est GFR ( Amer) Est GFR (Non-Af Amer) BUN/Creatinine Ratio (10-20) Glucose (70-99) mg/dl Calcium (8.5-10.1) mg/dl Phosphorus (2.5-4.9) mg/dl Magnesium (1.8-2.4) mg/dl Blood Type A Positive Blood Type Recheck A Positive Antibody Screen NEGATIVE Crossmatch See Detail PG Care Time/CCT Total # of Minutes Spent Total Time Spent with Patient: Total time spent is greater than 50% in coordination of care (as documented) at patient's floor/unit and/or counseling patient:
--- NOTE | 2019-06-13 15:20 | Anesthesiology Consultation ---
Date of Service June 13, 2019 Assessment & Plan (1) Encounter for pre-operative examination: Chart Review Chart Review: Acceptable Risk for Surgery and Patient NOT seen in Pre Admission Testing Consults Requested none History Surgery Operation Date: 06/13/19 16:45 Proposed Procedures p Esophagogastroduodenoscopy Dr Dailey - Naresh Dailey Height/Weight Height: 5 ft 1 in Weight: 77.4 kg Allergies Allergy/AdvReac Type Severity Reaction Status Date / Time Sulfa (Sulfonamide Allergy Rash Unverified 06/11/19 16:52 Antibiotics) Medications Home Medications Medication Instructions Recorded Confirmed Last Taken alprazolam 0.25 mg PO UD PRN 06/11/19 06/11/19 Unknown aspirin 81 mg PO QAM 06/11/19 06/11/19 Unknown citalopram 40 mg PO QPM 06/11/19 06/11/19 Unknown hydrochlorothiazide 50 mg PO QAM 06/11/19 06/11/19 Unknown multivitamin 1 tab PO QPM 06/11/19 06/11/19 Unknown omeprazole 20 mg PO QAM 06/11/19 06/11/19 Unknown simvastatin 20 mg PO HS 06/11/19 06/11/19 Unknown Active Medications Generic Name Dose Route Start Last Admin Trade Name Freq PRN Reason Stop Dose Admin Alprazolam 0.25 mg 06/11/19 20:47 06/12/19 22:11 Xanax PO 07/11/19 20:46 0.25 mg DAILY PRN Administration Anxiety Citalopram Hydrobromide 40 mg 06/11/19 21:00 06/12/19 20:21 Celexa PO 07/11/19 20:59 40 mg QPM NAHOMY Administration Potassium Chloride/Sodium Chloride 20 meq in 1,000 mls @ 75 mls/hr 06/11/19 21:00 06/13/19 14:21 Normal Saline W/20 Meq Kcl IV 07/11/19 20:59 0 mls/hr .[id number] NAHOMY Infusion Pantoprazole Sodium 40 mg/ 10 mls @ 5 mls/min 06/12/19 09:15 06/13/19 08:09 Syringe IV 07/12/19 09:14 5 mls/min BID@0900,2100 NAHOMY Administration Iron Sucrose 100 mg/ Sodium 105 mls @ 420 mls/hr 06/12/19 18:00 06/12/19 16:44 Chloride IV 06/14/19 18:14 Infused DAILY@1800 NAHOMY Infusion Multivitamins 1 tab 06/11/19 21:00 06/12/19 20:21 Multivitamin Tab PO 07/11/19 20:59 1 tab QPM NAHOMY Administration Simvastatin 20 mg 06/11/19 21:00 06/12/19 20:21 Zocor PO 07/11/19 20:59 20 mg HS NAHOMY Administration NPO Date Last Intake of Fluids: 06/12/19 Time Last Intake of Fluids: 23:00 Date Last Intake of Solids: 06/10/19 Time Last Intake of Solids: 17:00 Past Medical History Medical History Anxiety and depression GERD (gastroesophageal reflux disease) HTN (hypertension) Hyperlipidemia Past Family History Family History Other No significant family history Past Surgical History Surgical History H/O right wrist surgery Social History Smoking Status: Never smoker Hx Alcohol Use: Yes Alcohol type: beer alcohol intake frequency: holidays/special occasions only Hx Substance Use: No Physical Exam Vital Signs Last Vital Signs Temp 37 C 06/13/19 14:40 Pulse 50 L 06/13/19 15:16 Resp 14 06/13/19 14:40 BP 148/65 H 06/13/19 14:40 Pulse Ox 100 06/13/19 14:40 Testing Laboratory Results 06/13/19 09:19 06/13/19 09:19 PT 10.9 Seconds (9.0-12.0) 06/13/19 09:19 INR 1.1 (0.9-1.1) 06/13/19 09:19 APTT 22.2 Seconds (21.0-31.0) 06/13/19 09:19 Urine Color Yellow 06/11/19 17:13 Urine Appearance Clear (Clear) 06/11/19 17:13 Urine pH 8.5 (4.5-7.5) H 06/11/19 17:13 Ur Specific [place] 1.015 (1.000-1.030) 06/11/19 17:13 Urine Protein Negative (Negative) 06/11/19 17:13 Urine Glucose (UA) Negative (Negative) 06/11/19 17:13 Urine Ketones Negative (Negative) 06/11/19 17:13 Urine Nitrite Negative (Negative) 06/11/19 17:13 Ur Leukocyte Esterase Negative (Negative) 06/11/19 17:13 Blood Type A Positive 06/12/19 13:50 Antibody Screen NEGATIVE 06/12/19 13:50 06/11/19 22:00 WBC Smear - Final Stool Escherichia coli Shiga Toxins Test - Preliminary Stool Culture - Preliminary No Salmonella isolated to date, No Shigella isolated to date, No Campylobacter jejuni isolated to date.
[2019-06-13] MEDS ORDERED: ATROPINE SULFATE 0.1 MG/ML 10ML SYR IV PRN (15:22)
[2019-06-13] MEDS ORDERED: ePHEDrine sulfate 50 MG/ML AMP IV PRN (15:22)
--- NOTE | 2019-06-13 15:27 | History & Physical Report ---
Date of Service June 13, 2019 Assessment & Plan (1) Upper GI bleed: EGD for n/v, anemia, coffee ground emesis. Proc and risks explained which include but not limited to med reaction, bleeding, perforation, aspiration. History of Present Illness Chief Complaint: n/v Primary Care Provider: Laxmi De La Torre DO Pt with mild epi pain. No n/v today. Allergies Allergy/AdvReac Type Severity Reaction Status Date / Time Sulfa (Sulfonamide Allergy Rash Unverified 06/11/19 16:52 Antibiotics) Home Medications Home Medications Medication Instructions Recorded Confirmed Type alprazolam 0.25 mg PO UD PRN 06/11/19 06/11/19 History aspirin 81 mg PO QAM 06/11/19 06/11/19 History citalopram 40 mg PO QPM 06/11/19 06/11/19 History hydrochlorothiazide 50 mg PO QAM 06/11/19 06/11/19 History multivitamin 1 tab PO QPM 06/11/19 06/11/19 History omeprazole 20 mg PO QAM 06/11/19 06/11/19 History simvastatin 20 mg PO HS 06/11/19 06/11/19 History Past Med/Surg History Medical History Anxiety and depression GERD (gastroesophageal reflux disease) HTN (hypertension) Hyperlipidemia Surgical History H/O right wrist surgery Family History Other No significant family history Social History Preferred Language: French Communication Ability: Effective Outpatient Pharmacy Manager Required: No Beliefs That Will Affect Care: None marital status: Current Living Situation: Spouse current occupational status: employed Feels Safe at Home: Yes Safety Concerns: Feels Safe At This Time Smoking Status: Never smoker Hx Alcohol Use: Yes Alcohol type: beer Hx Substance Use: No Physical Exam Constitutional: WD/WN, vitals as above Respiratory: normal respiratory effort, lungs clear to auscultation Cardiovascular: RRR, no murmur, no edema Gastrointestinal (Abdomen): normal bowel sounds, soft, nontender, no hepatosplenomegaly Results & Data Vital Signs (Past 12 Hours) Vital Signs Temp Pulse Pulse Resp BP BP Pulse Ox 06/13/19 15:16 50 L 06/13/19 14:40 37 C 50 L 14 148/65 H 100 06/13/19 11:55 37.1 C 51 L 18 143/73 H 100 06/13/19 08:10 36.8 C 52 L 18 117/66 99 06/13/19 08:00 61 06/13/19 07:15 36.6 C 50 L 18 131/75 98 06/13/19 06:15 36.9 C 53 L 16 117/66 99 06/13/19 05:45 36.9 C 55 L 16 118/70 95 06/13/19 05:30 37.0 C 52 L 18 120/67 97 06/13/19 05:15 36.8 C 60 18 123/67 98 06/13/19 03:50 37.2 C 63 18 115/65 97 Code Status & VTE Plan VTE Prophylaxis Plan VTE Prophylaxis will be ordered: Yes
[2019-06-13] MEDS ORDERED: LIDOCAINE HCL 2% 2 ML VIAL/AMP(20MG/ML) INFIL ONE (15:43)
[2019-06-13] MEDS ORDERED: PROPOFOL IV EMULSION 10 MG/ML 20 ML VIAL IV ONE (15:43)
--- NOTE | 2019-06-13 15:51 | GI REPORT ---
Patient Name: Karla Chauhan Procedure Date: 06/13/2019 3:22 PM Date of : 1965 Admit Type: Inpatient Age: 53 Gender: Female Attending MD: Naresh Dailey MD Procedure: Upper GI endoscopy Providers: Naresh Dailey MD Referring MD: Maile Guillen Md Indications: Coffee-ground emesis, Iron deficiency anemia, Medicines: See the Anesthesia note for documentation of the administered medications Complications: No immediate complications. Estimated blood loss: Minimal. Estimated Blood Loss: Estimated blood loss was minimal. Procedure: Pre-Anesthesia Assessment: - The risks and benefits of the procedure and the sedation options and risks were discussed with the patient. All questions were answered and informed consent was obtained. - Patient identification and proposed procedure were verified prior to the procedure by the physician, the nurse and the sales order processor. The procedure was verified in the procedure room. After obtaining informed consent, the endoscope was passed under direct vision. Throughout the procedure, the patient's blood pressure, pulse, and oxygen saturations were monitored continuously. The Scope was introduced through the mouth, and advanced to the second part of duodenum. The upper GI endoscopy was accomplished without difficulty. The patient tolerated the procedure well. Procedure and risks explained to patient which include but not limited to medication reaction, bleeding, perforation, aspiration , and missed lesions. Judicious gas insufflation was used and gas removal done on the way out. The lumen was always visualized when advancing the scope. Prep was good. Washes and suctioning used as needed to get good visualization of the mucosa. Retroflexion to look at the fundus and cardia of the stomach and GE junction was done. Findings: Esophagogastric landmarks were identified: the Z-line was found at 33 cm from the incisors. A 6 cm hiatal hernia was present. LA Grade A (one or more mucosal breaks less than 5 mm, not extending between tops of 2 mucosal folds) esophagitis was found. Biopsies were taken with a cold forceps for histology. Estimated blood loss was minimal. Patchy moderate inflammation characterized by erosions was found in the gastric body where hiatal hernia crossed the diaphragm. The gastric antrum was normal. Biopsies were taken with a cold forceps for Helicobacter pylori testing. Estimated blood loss was minimal. The second portion of the duodenum was normal. Biopsies for histology were taken with a cold forceps for evaluation of celiac disease. Estimated blood loss was minimal. The exam was otherwise without abnormality. Impression: - Esophagogastric landmarks identified. - 6 cm hiatal hernia. - LA Grade A erosive esophagitis. Biopsied. - Erosive gastritis. - Normal antrum. Biopsied. - Normal second portion of the duodenum. Biopsied. - The examination was otherwise normal. Recommendation: - Return patient to [facility] for [facility] care. - Recommend PPI for erosive esophagitis and erorsive gastritis. Avoid NSAIDS and ASA. Anemia not necessarily explained by findings so recommend colonoscopy as outpt. Naresh Dailey M.D. Naresh Dailey MD 06/13/2019 3:51:04 PM This report has been signed electronically. Note Initiated On: 06/13/2019 3:22 PM Number of Addenda: 0 I attest to the content of the Intraoperative Record and orders documented therein, exceptions below {[id number]}
--- NOTE | 2019-06-13 15:53 | Post Operative Brief Note ---
Immediate Post Op Note v1 Date of Surgery June 13, 2019 Pre & Post Diagnosis Operation Date: 06/13/19 16:45 Pre-Op Diagnosis: Hematemesis, Anemia Post-Op Diagnosis: Gastritis, Esophagitis, Hiatal Hernia I identified the patient and participated in the time-out.: Yes Procedure Operation Date: 06/13/19 16:45 Actual Procedures p EGD Biopsy Cytology - Naresh Dailey Surgeon Naresh Dailey Piano Bench Assembler see report Estimated Blood Loss 0 Findings Consistent with Post-Op Diagnosis (Erosive esophagitis and erosive gastritis can explain coffee ground emesis but not necessarily the anemia. Recommend Protonix 40 mg po once daily and outpt colonoscopy. )
--- NOTE | 2019-06-13 16:29 | Anesthesiology Progress Note ---
Date of Service June 13, 2019 Anesthesia Post Procedure Vital Signs Vital Signs: Temp Pulse Pulse Resp BP BP Pulse Ox 06/13/19 16:16 50 L 15 156/68 H 99 06/13/19 16:01 49 L 14 127/75 98 06/13/19 15:46 54 L 16 131/70 99 06/13/19 15:16 50 L 06/13/19 14:40 37 C 50 L 14 148/65 H 100 06/13/19 11:55 37.1 C 51 L 18 143/73 H 100 06/13/19 08:10 36.8 C 52 L 18 117/66 99 06/13/19 08:00 61 06/13/19 07:15 36.6 C 50 L 18 131/75 98 06/13/19 06:15 36.9 C 53 L 16 117/66 99 06/13/19 05:45 36.9 C 55 L 16 118/70 95 06/13/19 05:30 37.0 C 52 L 18 120/67 97 06/13/19 05:15 36.8 C 60 18 123/67 98 06/13/19 03:50 37.2 C 63 18 115/65 97 06/13/19 00:08 58 L 06/12/19 23:15 36.9 C 59 L 18 126/65 99 06/12/19 19:27 37 C 60 18 115/68 98 Transfer of Care Handoff Completed per policy Notes Mental Status: alert / awake / arousable Patient Amnestic to Procedure: Yes Nausea / Vomiting: adequately controlled Pain: adequately controlled Airway Patency, RR, SpO2: stable & adequate BP & HR: stable & adequate Hydration State: stable & adequate Anesthetic Complications: no major complications apparent and Pt Satisfied with anesthetic care
[2019-06-13] MEDS: IRON SUCROSE 100 MG in 0.9 % SODIUM CHLORIDE 100 ML IV SCH (17:49)
[2019-06-13] MEDS ORDERED: Nursing to Pharmacy Communication ONE (18:12)
[2019-06-13] MEDS: SIMVASTATIN 20 MG TAB PO SCH (21:01)
[2019-06-13] MEDS: MULTIVITAMIN TAB PO SCH (21:01)
[2019-06-13] MEDS: CITALOPRAM 40 MG TAB PO SCH (21:01)
[2019-06-13] MEDS: ALPRAZolam 0.25 MG TABLET PO PRN (23:52)
--- NOTE | 2019-06-14 08:03 | Anesthesiology Progress Note ---
Date of Service June 14, 2019 Anesthesia Post Procedure Vital Signs Vital Signs: Temp Pulse Pulse Resp BP BP BP 06/14/19 07:26 36.7 C 52 L 18 132/77 06/14/19 03:11 36.9 C 54 L 16 129/64 06/13/19 23:24 36.9 C 52 L 18 145/63 H 06/13/19 22:20 52 L 06/13/19 18:40 37.2 C 79 16 110/61 06/13/19 16:16 50 L 15 156/68 H 06/13/19 16:01 49 L 14 127/75 06/13/19 15:46 54 L 16 131/70 06/13/19 15:16 50 L 06/13/19 14:40 37 C 50 L 14 148/65 H 06/13/19 11:55 37.1 C 51 L 18 143/73 H 06/13/19 08:10 36.8 C 52 L 18 117/66 Pulse Ox 06/14/19 07:26 99 06/14/19 03:11 99 06/13/19 23:24 96 06/13/19 22:20 06/13/19 18:40 92 06/13/19 16:16 99 06/13/19 16:01 98 06/13/19 15:46 99 06/13/19 15:16 06/13/19 14:40 100 06/13/19 11:55 100 06/13/19 08:10 99 Transfer of Care Handoff Completed per policy Notes Mental Status: alert / awake / arousable Patient Amnestic to Procedure: Yes Nausea / Vomiting: adequately controlled Pain: adequately controlled Anesthetic Complications: no major complications apparent and Pt Satisfied with anesthetic care
[2019-06-14 08:28] LABS: Basophils # (auto) 0.04 K/uL (0-0.2); Basophils % (auto) 0.6 %; Eosinophils # (auto) 0.18 K/uL (0-0.5); Eosinophils % (auto) 2.9 %; Hematocrit (blood only) 32.1 % (37-47); Hemoglobin 9.6 g/dL (12.0-16.0); Immature Granulocytes # (auto) 0.14 K/uL (0.00-0.02); Immature Granulocytes % (auto) 2.2 %; Lymphocytes # (auto) 1.45 K/uL (1.2-3.4); Lymphocytes % (auto) 23.1 %; Mean Corpuscular Hemoglobin 22.3 pg (25-34); Mean Corpuscular Hgb Conc 29.9 g/dL (32-36); Mean Corpuscular Volume 74.5 fL (80-100); Mean Platelet Volume 10.2 fL (7.4-10.4); Monocytes # (auto) 0.72 K/uL (0.11-0.59); Monocytes % (auto) 11.5 %; Neutrophils # (auto) 3.75 K/uL (1.4-6.5); Neutrophils % (auto) 59.7 %; Nucleated RBC # (auto) 0.05 K/uL (0-0); Nucleated RBC % (auto) 0.8 %; Platelet Count 320 K/uL (130-400); RDW Coefficient of Variation 19.6 % (11.5-14.5); RDW Standard Deviation 53.4 fL (36.4-46.3); Red Blood Count 4.31 M/uL (4.2-5.4); White Blood Count 6.28 K/uL (4.8-10.8)
[2019-06-14 09:00] LABS: BUN Creatinine Ratio 10.7 (10-20); Calcium 9.1 mg/dl (8.5-10.1); Creatinine Clr Calc Pharmacy 85.5 ml/min; Est GFR (African American) 111.6; Est GFR (Non-African American) 96.3; Magnesium 1.8 mg/dl (1.8-2.4)
[2019-06-14] MEDS ORDERED: PANTOprazole 40 MG TAB PO SCH (09:00)
[2019-06-14 09:13] LABS: Hypochromasia Present
[2019-06-14] MEDS: NSS + 20MEQ KCL 20 MEQ/1,000 ML BAG IV SCH (10:23)
--- NOTE | 2019-06-14 15:12 | Gastroenterology Progress Note ---
Date of Service June 14, 2019 Assessment & Plan (1) Upper GI bleed: coffee ground emesis can be explained by EGD finding of erosive gastritis and erosive esoophagitis Fe def anemia--no necessarily explained by EGD findings so recommend outpt colonoscopy. Pt is going to check with her insurance to see if we are in her plan and call office to arrange colo is we are. esophagitis/gastritis---PPI and avoid NSAIDs and ASA Will sign off. Please call for furhter questions. Subjective cc f/u n/v HPI Pt tolerating solid diet with no n/v. No abd pain. Physical Exam Cardiovascular: RRR, no murmur, no edema Gastrointestinal (Abdomen): normal bowel sounds, soft, nontender, no hepatosplenomegaly Results & Data Vital Signs (Past 12 Hours) Vital Signs Temp Pulse Pulse Resp BP BP Pulse Ox 06/14/19 15:08 56 L 06/14/19 11:11 36.7 C 54 L 18 148/81 H 99 06/14/19 08:00 54 L 06/14/19 07:26 36.7 C 52 L 18 132/77 99 06/14/19 03:11 36.9 C 54 L 16 129/64 99
--- NOTE | 2019-06-14 15:58 | Discharge Summary ---
Date of Service June 14, 2019 Admission HPI Per Admitting Provider Chief Complaint: The patient presents to the emergency department with 24 hours of persistent nausea, vomiting and diarrhea, with subsequent arm and leg cramps and tingling that concerned her that she might be having a stroke Primary Care Provider: Laxmi De La Torre DO The patient is a 53-year-old female with a past medical history of hypertension, GERD, hypercholesterolemia, anxiety and depression who presents to the emergency department 24 hours of persistent nausea, vomiting and diarrhea and arm and leg cramping. She did also have some lightheadedness and dizziness along with fatigue. She has not had any recent travels. Her main potential sick exposure is that of her daughter who works at a daycare center. She does not think she has had any potentially contaminated food intake Principal Diagnosis Acute on chronic blood loss anemia, Erosive esophagitis and gastritis, GI Bleed Discharge Exam Constitutional WD/WN, vitals as above Eyes + anicteric sclerae ENMT external ear and nose normal, oropharynx normal Neck trachea midline, no thyromegaly Respiratory normal respiratory effort, lungs clear to auscultation Cardiovascular Rate/Rhythm: regular rhythm and + bradycardic Heart Sounds: no murmur Extremities: no edema Chest (Breasts) Chest: normal inspection of chest Gastrointestinal (Abdomen) normal bowel sounds, soft, nontender, no hepatosplenomegaly Musculoskeletal Extremities: extremities normal to inspection; no cyanosis and no clubbing Skin no rashes, warm and dry Neurologic moves all extremities and awake; no focal motor deficits Psychiatric A+Ox3, euthymic affect Lymphatic no lymphedema Discharge Data Allergies Allergy/AdvReac Type Severity Reaction Status Date / Time Sulfa (Sulfonamide Allergy Rash Unverified 06/11/19 16:52 Antibiotics) Consultations 06/11/19 17:17 ED Decision to Admit Stat 06/11/19 20:47 Consult Case Management - Discharge Planning Routine 06/12/19 08:47 Consult Gastroenterology Routine Procedures Performed Operation Date: 06/13/19 16:45 Actual Procedures p EGD Biopsy Cytology - [facility] Course (1) Acute blood loss anemia: Unknown previous baseline hgb but was 9.0 on admission and dropped to 6.9 after admission With melena and hematemesis prior to admission On ASA and daily ibuprofen 600mg at home for chronic right wrist pain MCV severely microcytic at 69, plts high, serum Fe low all consistent with Fe- deficiency anemia chronically -transfused 1 unit PRBCs on 06/13 and had good response, hgb up to 8.9 (inappropriately high and drawn shortly after transfusion complete -was given 2 doses of IV Venofer Hgb up to 9.6 on the day of discharge Had colonoscopy 4-5 years ago that was normal-early screening for +FH colon polyps in her mother EGD 06/13 with erosive gastritis and erosive esophagitis, H. pylori bx taken and negative GI does not think this would cause such significant blood loss--> recommends colonoscopy as outpt - tolerating po, can be discharged to home -dc ASA, all NSAIDs -convert IV PPI to Protonix 40mg po bid upon discharge (2) Upper GI bleed: Her history is pretty classic for an upper GI bleed. Five episodes of black emesis along with dark, tarry stools prior to admission. Interestingly, no abdominal pain despite all this. Follows with [facility] in [place]. EGD 2-3 years ago showed nothing acute per patient and now with erosive gastritis and esophagitis as above. -see above (3) Erosive esophagitis: convert to po PPI -avoid NSAIDs, ASA (4) Erosive gastritis: as above (5) Electrolyte abnormality: The nausea, vomiting and diarrhea is led to electrolyte disturbances and dehydration. Cdiff negative on 06/11. had significant hypomagnesemia, hypokalemia, and hypophosphatemia-now resolved with replacement and holding HCTZ - Stool culture negative -permanently dc HCTZ (6) HTN (hypertension): BP stable - discontinued HCTZ due to hypokalemia and hypomagnesemia BPs not that high after that-f/u with PCP to discuss replacement med for HTN (7) GERD (gastroesophageal reflux disease): - PPI as above (8) Hiatal hernia: 6 cm, seen on EGD, with erosive gastritis -continue PPI as above -avoid NSAIDs, ASA (9) Hyperlipidemia: - Continue simvastatin 20 mg at bedtime (10) Anxiety and depression: Stable - Continue alprazolam and citalopram (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: (12) DVT prophylaxis: SCDs - Low DVT risk per admission calculator & no heparin given concern for GI bleed Dispo-stable for dc to home, bleeding resolved, hgb stable, tolerating reg diet Total Time Total Time Spent Total Time Spent (In Minutes): 35 min Total Time Includes: Examination of the Patient, Discharge Planning and Medication Reconciliation Discharge Plan Discharge Items Patient Disposition: Home - Self-Care Reason For Visit: N/V/D, HYPOMAGNESEMIA, HYPOPHOSPHATEMIA Discharge Diagnosis: GI Bleed, acute blood loss anemia, erosive gastritis and erosive esophagitis Condition on Discharge: Good Activity: As commented below Lifting: Gradually increase as tolerated Bathing: No limitations Exercise/Sports: Gradually increase as tolerated Non-emergency contact: Primary Care Provider and Manager Of Learning Call non-emergency contact if: you have any medication questions and your symptoms worsen Follow-up/Referrals: Naresh Dailey [Physician] - Laxmi De La Torre DO [Primary Care Provider] - 06/21/19 2:00 pm (Please, follow up with Dr. De La Torre on ThursdayJune 21 at 2:00 pm. *If you need to change this appointment, call the office at [phone].) Gabriel Edwards M.D. [Outside Practitioners] - 06/30/19 11:15 am (Please, follow up at [facility] with Dr. Edwards on June 30 at 11:15 am. *If you need to change this appointment, call the office at [phone].) Diet: Heart Healthy Diet Comment: eat a bland diet for 1-2 weeks Addtl Attending Provider Instructions: You were admitted for GI bleeding from inflammation of your esophagus and stomach. Do not take any more aspirin or NSAIDs (ibuprofen, Aleve, naproxen, etc.) as these medications can contribute to this condition. You should take Protonix 40mg twice a day for 2 months and then revert to taking it once daily. Your biopsy did show Feliz's esophagus which is a pre-cancerous condition of the esophagus and requires monitoring with EGD every 2-3 years. It is important to control your acid reflux with Protonix to keep this from getting worse. Your biopsy did NOT show any cancer or any evidence of celiac disease. Some of your anemia is likely chronic and not explained by the recent bleeding. It is important that you have a colonoscopy and follow up with GI on this issue. You should take iron tablets (Slow Fe) twice a day along with a stool softener and have your PCP check your blood count in 1-2 weeks. Your low magnesium and potassium may be from the HCTZ. This was discontinued. FOllow up with your PCP regarding your blood pressure. Pending Studies at Discharge: Yes (Helicobacter pylori stool antigen, Celiac disease blood test) Stand-Alone Forms: [facility] Medications and DC Order Prescriptions: New acetaminophen [Mapap (acetaminophen)] 325 mg Tablet 650 mg PO Q4H PRN (Reason: pain) Qty: 30 RF: 0 pantoprazole 40 mg Tablet,Delayed Release (Dr/Ec) 40 mg PO BID Qty: 60 RF: 0 Continued multivitamin Tablet 1 tab PO QPM RF: 0 citalopram 40 mg tablet 40 mg PO QPM RF: 0 alprazolam 0.25 mg tablet 0.25 mg PO UD PRN (Reason: Anxiety) RF: 0 simvastatin 20 mg tablet 20 mg PO HS RF: 0 Discontinued hydrochlorothiazide 50 mg tablet 50 mg PO QAM RF: 0 aspirin 81 mg Tablet,Delayed Release (Dr/Ec) 81 mg PO QAM RF: 0 omeprazole 20 mg capsule,delayed release(DR/EC) 20 mg PO QAM RF: 0 ibuprofen 600 mg tablet 600 mg PO DAILY PRN (Reason: Pain) RF: 0 Discharge Orders: Discharge Order (Routine); Ordered 06/14/19 Ordered By: Maile Guillen Admission Data Admit Date/Time: 06/11/19 17:19 Attending Provider: Maile Guillen Admit Provider: Adrien Barney Primary Care Provider: Laxmi De La Torre Other Providers: Bill Franklin Other Interventions: Discharge Summary Assessment (RN) Last Done: 06/13/19 16:01 DC Date/Time DO NOT enter until pt leaves facility: 06/14/19 17:04
== END 2019-06-14 17:04 | disposition home or self-care (01) | DRG 378 ==
LOC: ED 15:17 → SUATTDRO 17:19 → 2N 17:19